=== PATIENT | female | born 1960 ===

== ENCOUNTER 2020-06-15 21:32 | Inpatient (IN) | payer MEDICAID ==
[~2020-06-15] VITALS: Ht 162.6 cm; Wt 95.7 kg
[2020-06-15] MEDS ORDERED: ACETAMINOPHEN 500 MG TABLET PO ONE (22:30)
--- NOTE | 2020-06-15 23:30 | NUR ---
HYDRAULIC MINER BLASTING: PT WALKED BACK FROM LOBBY TO ROOM AT THIS TIME.
[2020-06-15] MEDS ORDERED: ACETAMINOPHEN 500 MG TABLET ONE (23:40)
--- NOTE | 2020-06-15 23:58 | NUR ---
PT HERE FOR COUGH AND INCREASED SOB AFTER BEING DIAGNOSED COVID +. PT TOOK TEST THURSDAY AND WAS CALLED THURSDAY WITH RESULTS. PT DENIES ANY MEDICAL PROBLEMS. PT IS 86 ON RA AND WAS PLACED ON 2 L AND SATS IMPROVED TO 95. VSS. XRAY AT BEDSIDE. CALL LIGHT IN REACH
[2020-06-16] MEDS ORDERED: SODIUM CHLORIDE 0.9% 1,000ML IVBOLUS ONE
[2020-06-16] MEDS ORDERED: SODIUM CHLORIDE FLUSH 10ML SYR IVF ONE
--- NOTE | 2020-06-16 00:54 | NUR ---
PIV ATTEMPTED X 2. WILL HAVE ANOTHER RN ATTEMPT PIV.
[2020-06-16 01:06] LABS: ALANINE AMINOTRANSFERASE 47 U/L (12-78); ANION GAP 7 mmol/L (5-15); CHLORIDE 107 mmol/L (98-107); CREATININE 0.56 mg/dL (0.55-1.02)
[2020-06-16 01:07] LABS: BASOPHILS % (AUTO) 0 % (0-1); EOSINOPHILS % (AUTO) 0 % (1-7); LYMPHOCYTES % (AUTO) 18 % (22-44); MEAN CORPUSCULAR HEMOGLOBIN 21.9 pg (27.0-34.8); MEAN CORPUSCULAR HGB CONC 30.8 g/dL (32.4-35.8); MEAN PLATELET VOLUME 7.9 fL (7.4-10.4); MONOCYTES % (AUTO) 7 % (2-9); NEUTROPHILS % (AUTO) 74 % (42-75); PLATELET COUNT 224 x10^3/uL (130-400); RED BLOOD COUNT 5.75 x10^6/uL (3.82-5.3); RED CELL DISTRIBUTION WIDTH 15.3 % (9.6-15.2)
[2020-06-16 01:11] LABS: ALKALINE PHOSPHATASE 84 U/L (45-117); BILIRUBIN,TOTAL 0.4 mg/dL (0.2-1.0); TOTAL PROTEIN 7.4 g/dL (6.4-8.2); TROPONIN I < 0.015 ng/mL (0.000-0.045)
--- NOTE | 2020-06-16 01:15 | NUR ---
REPORT FROM MAMADOU RODRIGUEZ
[2020-06-16] MEDS ORDERED: CEFTRIAXONE PMX 1GM/50ML 50 ML IVPB ONE (01:30)
[2020-06-16] MEDS ORDERED: AZITHROMYCIN 500 MG in SODIUM CHLORIDE 0.9% 250 ML IVPB ONE (01:30)
[2020-06-16] MEDS ORDERED: CEFTRIAXONE PMX 1GM/50ML 50 ML ONE (01:35)
[2020-06-16 01:40] LABS: MD SCAN
--- NOTE | 2020-06-16 01:42 | NUR ---
PT RESTING ON BED. ABX STARTED AFTER BLOOD CULTURES. PILLOW PROVIDED. PT STATING "IM TIRED"
--- NOTE | 2020-06-16 01:58 | NUR ---
HOSPITAL BED REQUESTED.
--- NOTE | 2020-06-16 02:39 | NUR ---
PT AMBULATORY TO THE BATHROOM WITH STEADY GAIT.
[2020-06-16] MEDS ORDERED: ENALAPRILAT 1.25 MG/ML, 2ML IVPush PRN (03:00)
[2020-06-16] MEDS ORDERED: PROMETHAZINE 25 MG/ML, 1ML IM PRN (03:00)
[2020-06-16] MEDS ORDERED: POTASSIUM CHLORIDE 20 MEQ TAB.ER.PRT PO ONE (03:00)
[2020-06-16] MEDS ORDERED: PHARMACY MAY ADJ FOR RENAL FX MC PRN (03:00)
[2020-06-16] MEDS ORDERED: ACETAMINOPHEN 325 MG TABLET PO PRN (03:00)
[2020-06-16 03:40] LABS: HCT (SEDRATE) 40.3 % (34.6-47.8)
[2020-06-16 03:51] LABS: C-REACTIVE PROTEIN, QUANT 13.4 mg/dL (0.02-0.49)
--- NOTE | 2020-06-16 04:43 | NUR ---
HOSPITAL BED REQUESTED SECOND TIME.
[2020-06-16 04:51] LABS: D-DIMER (DIC) 0.78 ug/mlFEU (0.00-0.52); PROTIME 10.6 Seconds (9.6-11.5)
[2020-06-16] MEDS: CEFTRIAXONE PMX 1GM/50ML 50 ML IVPB SCH (04:57)
[2020-06-16] MEDS: AZITHROMYCIN 500 MG in SODIUM CHLORIDE 0.9% 250 ML IV SCH (04:58)
[2020-06-16] MEDS ORDERED: DEXAMETHASONE 4 MG TABLET ONE (05:07)
[2020-06-16] MEDS ORDERED: ENOXAPARIN 40 MG/0.4 ML ONE (05:07)
[2020-06-16] MEDS ORDERED: POTASSIUM CHLORIDE 20 MEQ TAB.ER.PRT ONE (05:07)
[2020-06-16] MEDS: ENOXAPARIN 40 MG/0.4 ML SQ SCH (05:24)
[2020-06-16] MEDS ORDERED: REMDESIVIR 200 MG in SODIUM CHLORIDE 0.9% 250 ML IVPB ONE (05:30)
[2020-06-16] MEDS: DEXAMETHASONE 1 MG TABLET PO SCH (05:32)
--- NOTE | 2020-06-16 05:35 | NUR ---
PT AMBULATORY TO THE BATHROOM WITH STEADY GAIT.
[2020-06-16 05:56] LABS: BASOPHILS % (AUTO) 0 % (0-1); EOSINOPHILS % (AUTO) 0 % (1-7); LYMPHOCYTES % (AUTO) 24 % (22-44); MEAN CORPUSCULAR HEMOGLOBIN 22.2 pg (27.0-34.8); MEAN CORPUSCULAR HGB CONC 30.1 g/dL (32.4-35.8); MEAN PLATELET VOLUME 7.6 fL (7.4-10.4); MONOCYTES % (AUTO) 7 % (2-9); NEUTROPHILS % (AUTO) 68 % (42-75); PLATELET COUNT 169 x10^3/uL (130-400); RED BLOOD COUNT 5.83 x10^6/uL (3.82-5.3); RED CELL DISTRIBUTION WIDTH 15.2 % (9.6-15.2)
[2020-06-16 05:57] LABS: ALANINE AMINOTRANSFERASE 44 U/L (12-78); ALBUMIN 2.8 g/dL (3.4-5.0); ANION GAP 3 mmol/L (5-15); CALCIUM 7.8 mg/dL (8.5-10.1); CHLORIDE 110 mmol/L (98-107)
[2020-06-16 06:00] LABS: ALKALINE PHOSPHATASE 78 U/L (45-117); BILIRUBIN,TOTAL 0.4 mg/dL (0.2-1.0)
--- NOTE | 2020-06-16 06:20 | NUR ---
PT PROVIDED HOSPITAL BED
[2020-06-16 06:27] LABS: MD NO
--- NOTE | 2020-06-16 06:51 | NUR ---
took report from Jenny Ramos RN, assume care at this time. pt talking on her phone, in no acute distress on 3l nc. rr even and unlabored.
[2020-06-16] MEDS ORDERED: ZINC SULFATE 220 MG CAPSULE ONE (06:59)
[2020-06-16] MEDS ORDERED: ASCORBIC ACID 500 MG TABLET ONE ×2 (06:59→17:40)
[2020-06-16] MEDS: ZINC SULFATE 220 MG CAPSULE PO SCH (07:22)
[2020-06-16] MEDS ORDERED: ASCORBIC ACID 250 MG TAB PO SCH (08:00)
[2020-06-16] MEDS: THIAMINE 200 MG in SODIUM CHLORIDE 0.9% 50 ML IV SCH ×2 (10:25→20:45)
--- NOTE | 2020-06-16 10:48 | NUR ---
Hospitalist in room
--- NOTE | 2020-06-16 12:32 | NUR ---
LUNCH BREAK NOTE: MEAL TRAY ORDREED AND VITAL SIGNS TAKEN. 3 P'S ADDRESSED. PT DENIES ANY NEEDS AT THIS TIME.
--- NOTE | 2020-06-16 13:40 | NUR ---
PT CALM I BED SLEEPING ON 3 L NC, 97%.RR EVEN AND UNLABORED
--- NOTE | 2020-06-16 13:53 | NUR ---
FAMILY CALLED FOR PT UPDATE. ALL QUESTIONS ANSWERED PER PT
--- NOTE | 2020-06-16 16:25 | NUR ---
PT CALM SLEEPING IN BED, FAMILY BROUGHT HER A PHONE. SPO2 98%$ ON 3L ID.
[2020-06-16] MEDS: ASCORBIC ACID 500 MG TABLET PO SCH (17:49)
--- NOTE | 2020-06-16 18:30 | NUR ---
PT ON COMMODE, DIET TRAY GIVEN
--- NOTE | 2020-06-16 19:00 | NUR ---
REPORT RECEIVED FROM ARIANA CEDILLO
--- NOTE | 2020-06-16 20:52 | NUR ---
PT RESTING COMFORTABLY. COMPLAINS OF A COUGH
--- NOTE | 2020-06-16 22:00 | NUR ---
PT RESTING IN HOSPITAL BED COMFORTABLY. DENIES NEEDS
--- NOTE | 2020-06-16 23:06 | NUR ---
RESTING COMFORTABLY. DENIES NEEDS
--- NOTE | 2020-06-17 00:07 | NUR ---
PT IN HOSPITAL BED, ON PHONE MOST OF EVENING, APPEARS TO BE FACETIMING. DENIES ANY NEEDS AT THIS TIME
--- NOTE | 2020-06-17 00:23 | NUR ---
REPORT GIVEN TO MICHEL CEDILLO
[2020-06-17 01:54] VITALS: BP 93/51
[2020-06-17] MEDS: CEFTRIAXONE PMX 1GM/50ML 50 ML IVPB SCH (02:06)
[2020-06-17] MEDS: AZITHROMYCIN 500 MG in SODIUM CHLORIDE 0.9% 250 ML IV SCH (02:38)
[2020-06-17] MEDS: ENOXAPARIN 40 MG/0.4 ML SQ SCH (05:13)
[2020-06-17 06:23] LABS: BASOPHILS % (AUTO) 0 % (0-1); EOSINOPHILS % (AUTO) 0 % (1-7); LYMPHOCYTES % (AUTO) 20 % (22-44); MEAN CORPUSCULAR HEMOGLOBIN 22.1 pg (27.0-34.8); MEAN CORPUSCULAR HGB CONC 30.8 g/dL (32.4-35.8); MEAN PLATELET VOLUME 7.9 fL (7.4-10.4); MONOCYTES % (AUTO) 11 % (2-9); NEUTROPHILS % (AUTO) 69 % (42-75); PLATELET COUNT 279 x10^3/uL (130-400); RED BLOOD COUNT 5.43 x10^6/uL (3.82-5.3); RED CELL DISTRIBUTION WIDTH 15.1 % (9.6-15.2)
[2020-06-17 06:28] LABS: INTERNATIONAL NORMALIZED RATIO 1.01 (0.93-1.1); PROTHROMBIN TIME 10.7 Seconds (9.6-11.5)
[2020-06-17 06:31] LABS: ALBUMIN 2.7 g/dL (3.4-5.0); ANION GAP 4 mmol/L (5-15); CALCIUM 8.4 mg/dL (8.5-10.1); CHLORIDE 109 mmol/L (98-107)
[2020-06-17 06:47] LABS: ALANINE AMINOTRANSFERASE 42 U/L (12-78); ALKALINE PHOSPHATASE 72 U/L (45-117); BILIRUBIN,TOTAL 0.3 mg/dL (0.2-1.0); CREATININE 0.53 mg/dL (0.55-1.02); TOTAL PROTEIN 6.9 g/dL (6.4-8.2)
[2020-06-17 06:52] LABS: MD SCAN
[2020-06-17 07:00] VITALS: BP 96/55
[2020-06-17] MEDS: DEXAMETHASONE 1 MG TABLET PO SCH (07:53)
[2020-06-17] MEDS: ZINC SULFATE 220 MG CAPSULE PO SCH (07:54)
[2020-06-17] MEDS: ASCORBIC ACID 500 MG TABLET PO SCH ×2 (07:54→16:55)
[2020-06-17] MEDS: REMDESIVIR 100 MG in SODIUM CHLORIDE 0.9% 250 ML IVPB SCH (08:31)
[2020-06-17 10:50] VITALS: BP 108/69
[2020-06-17] MEDS: THIAMINE 200 MG in SODIUM CHLORIDE 0.9% 50 ML IV SCH (12:00)
[2020-06-17 12:08] VITALS: BP 112/73
[2020-06-17 19:22] VITALS: BP 134/64
[2020-06-18 01:59] VITALS: BP 119/62
[2020-06-18] MEDS: CEFTRIAXONE PMX 1GM/50ML 50 ML IVPB SCH (01:59)
[2020-06-18] MEDS: AZITHROMYCIN 500 MG in SODIUM CHLORIDE 0.9% 250 ML IV SCH (02:58)
[2020-06-18 04:42] LABS: BASOPHILS % (AUTO) 0 % (0-1); EOSINOPHILS % (AUTO) 0 % (1-7); LYMPHOCYTES % (AUTO) 14 % (22-44); MEAN CORPUSCULAR HEMOGLOBIN 22.3 pg (27.0-34.8); MEAN CORPUSCULAR HGB CONC 31.3 g/dL (32.4-35.8); MEAN PLATELET VOLUME 7.6 fL (7.4-10.4); MONOCYTES % (AUTO) 12 % (2-9); NEUTROPHILS % (AUTO) 75 % (42-75); PLATELET COUNT 339 x10^3/uL (130-400); RED BLOOD COUNT 5.62 x10^6/uL (3.82-5.3); RED CELL DISTRIBUTION WIDTH 15.4 % (9.6-15.2)
[2020-06-18 04:47] LABS: ALANINE AMINOTRANSFERASE 41 U/L (12-78); ALBUMIN 2.8 g/dL (3.4-5.0); ANION GAP 5 mmol/L (5-15); CALCIUM 8.5 mg/dL (8.5-10.1); CHLORIDE 108 mmol/L (98-107); CREATININE 0.55 mg/dL (0.55-1.02)
[2020-06-18 04:50] LABS: ALKALINE PHOSPHATASE 77 U/L (45-117); BILIRUBIN,TOTAL 0.3 mg/dL (0.2-1.0); TOTAL PROTEIN 7.2 g/dL (6.4-8.2)
[2020-06-18] MEDS: ENOXAPARIN 40 MG/0.4 ML SQ SCH (05:34)
[2020-06-18 05:47] LABS: MD SCAN
[2020-06-18 08:05] VITALS: BP 101/59
[2020-06-18] MEDS: ZINC SULFATE 220 MG CAPSULE PO SCH (08:41)
[2020-06-18] MEDS: ASCORBIC ACID 500 MG TABLET PO SCH ×2 (08:41→17:06)
[2020-06-18] MEDS: REMDESIVIR 100 MG in SODIUM CHLORIDE 0.9% 250 ML IVPB SCH (08:41)
[2020-06-18] MEDS: DEXAMETHASONE 1 MG TABLET PO SCH (08:43)
[2020-06-18] MEDS ORDERED: GUAIFENESIN/DM 100-10MG, 5ML UDC PO PRN (11:00)
[2020-06-18] MEDS: GUAIFENESIN/COD200MG-20MG/10ML LIQUID PO PRN (11:16)
[2020-06-18 12:35] VITALS: BP 101/57
[2020-06-18 18:53] VITALS: BP 122/74
[2020-06-19 00:11] VITALS: BP 116/68
[2020-06-19] MEDS: CEFTRIAXONE PMX 1GM/50ML 50 ML IVPB SCH (02:06)
[2020-06-19] MEDS: AZITHROMYCIN 500 MG in SODIUM CHLORIDE 0.9% 250 ML IV SCH (02:35)
[2020-06-19] MEDS: ENOXAPARIN 40 MG/0.4 ML SQ SCH (02:36)
[2020-06-19 05:49] LABS: BASOPHILS % (AUTO) 0 % (0-1); EOSINOPHILS % (AUTO) 0 % (1-7); LYMPHOCYTES % (AUTO) 17 % (22-44); MEAN CORPUSCULAR HEMOGLOBIN 22.3 pg (27.0-34.8); MEAN CORPUSCULAR HGB CONC 31.1 g/dL (32.4-35.8); MEAN PLATELET VOLUME 7.8 fL (7.4-10.4); MONOCYTES % (AUTO) 14 % (2-9); NEUTROPHILS % (AUTO) 69 % (42-75); PLATELET COUNT 380 x10^3/uL (130-400); RED BLOOD COUNT 5.76 x10^6/uL (3.82-5.3); RED CELL DISTRIBUTION WIDTH 14.8 % (9.6-15.2)
[2020-06-19 05:54] LABS: MD NO
[2020-06-19 06:07] LABS: CHLORIDE 107 mmol/L (98-107)
[2020-06-19 06:23] LABS: ALANINE AMINOTRANSFERASE 53 U/L (12-78); ALBUMIN 2.9 g/dL (3.4-5.0); ALKALINE PHOSPHATASE 75 U/L (45-117); ANION GAP 6 mmol/L (5-15); BILIRUBIN,TOTAL 0.5 mg/dL (0.2-1.0); CALCIUM 8.6 mg/dL (8.5-10.1); CREATININE 0.53 mg/dL (0.55-1.02); TOTAL PROTEIN 7.4 g/dL (6.4-8.2)
[2020-06-19 06:27] VITALS: BP 130/80
[2020-06-19 07:01] VITALS: BP 117/66
[2020-06-19] MEDS: REMDESIVIR 100 MG in SODIUM CHLORIDE 0.9% 250 ML IVPB SCH (08:27)
[2020-06-19] MEDS: ZINC SULFATE 220 MG CAPSULE PO SCH (08:27)
[2020-06-19] MEDS: ASCORBIC ACID 500 MG TABLET PO SCH ×2 (08:27→16:34)
[2020-06-19] MEDS: DEXAMETHASONE 1 MG TABLET PO SCH (08:27)
[2020-06-19] MEDS: GUAIFENESIN/COD200MG-20MG/10ML LIQUID PO PRN ×2 (08:35→19:43)
[2020-06-19 13:01] VITALS: BP 130/78
[2020-06-19 19:36] VITALS: BP 133/73
[2020-06-20 01:39] VITALS: BP 133/68
[2020-06-20] MEDS: CEFTRIAXONE PMX 1GM/50ML 50 ML IVPB SCH (02:05)
[2020-06-20] MEDS: AZITHROMYCIN 500 MG in SODIUM CHLORIDE 0.9% 250 ML IV SCH (02:40)
[2020-06-20] MEDS: ENOXAPARIN 40 MG/0.4 ML SQ SCH (02:41)
[2020-06-20 06:30] LABS: BASOPHILS % (AUTO) 0 % (0-1); CHLORIDE 107 mmol/L (98-107); EOSINOPHILS % (AUTO) 0 % (1-7); LYMPHOCYTES % (AUTO) 16 % (22-44); MEAN CORPUSCULAR HEMOGLOBIN 22.3 pg (27.0-34.8); MEAN CORPUSCULAR HGB CONC 31.5 g/dL (32.4-35.8); MONOCYTES % (AUTO) 15 % (2-9); NEUTROPHILS % (AUTO) 69 % (42-75); PLATELET COUNT 437 x10^3/uL (130-400); RED CELL DISTRIBUTION WIDTH 15.2 % (9.6-15.2)
[2020-06-20 06:35] LABS: ALANINE AMINOTRANSFERASE 81 U/L (12-78); ALKALINE PHOSPHATASE 75 U/L (45-117); ANION GAP 6 mmol/L (5-15); BILIRUBIN,TOTAL 0.6 mg/dL (0.2-1.0); CALCIUM 8.8 mg/dL (8.5-10.1); CREATININE 0.51 mg/dL (0.55-1.02); TOTAL PROTEIN 7.3 g/dL (6.4-8.2)
[2020-06-20 06:37] LABS: MD NO
[2020-06-20 07:25] VITALS: BP 138/81
[2020-06-20] MEDS ORDERED: FUROSEMIDE 20 MG/2 ML IV ONE (08:00)
[2020-06-20] MEDS: REMDESIVIR 100 MG in SODIUM CHLORIDE 0.9% 250 ML IVPB SCH (09:49)
[2020-06-20] MEDS: DEXAMETHASONE 1 MG TABLET PO SCH (09:50)
[2020-06-20] MEDS: ASCORBIC ACID 500 MG TABLET PO SCH ×2 (09:50→17:42)
[2020-06-20] MEDS: ZINC SULFATE 220 MG CAPSULE PO SCH (09:50)
[2020-06-20 12:09] VITALS: BP 133/73
[2020-06-20] MEDS ORDERED: CEFD125S3 PO (13:44)
[2020-06-20] MEDS ORDERED: DEXA6TAB6 PO (13:44)
[2020-06-20] MEDS ORDERED: ZINC220C7 PO (13:44)
[2020-06-20] MEDS ORDERED: AZIT500T10 PO (13:44)
[2020-06-20] MEDS ORDERED: ASCO500T9 PO (13:44)
== END 2020-06-20 19:17 | disposition home or self-care (01) | DRG 177 ==
LOC: ED 23:30 → EDIP 06-16 01:20 → 4EST 06-17 01:24
PROVIDERS: ADMIT Family Medicine; ATTEND Internal Medicine
PROC: XW033E5 Introduction of Remdesivir Anti-infective into Peripheral Vein, Percutaneous Approach, New Technology Group 5 (ICD-10-PCS; principal; 2020-06-18)
DX: U07.1 COVID-19 (principal); J12.89 Other viral pneumonia; J96.01 Acute respiratory failure with hypoxia; E66.9 Obesity, unspecified; E87.6 Hypokalemia; Z68.36 Body mass index [BMI] 36.0-36.9, adult
CPT/HCPCS: 36415; 71045; 80053; 82550; 82728; 82962; 83605; 83615; 83735; 83880; 84145; 84484; 85025; 85049; 85379; 85384; 85610; 85651; 85730; 86140; 87040; 93005; G0378; J0456; J0696; J1650; J3411; J1940; J7030; J7050